=== PATIENT | male | born 1955 | race Caucasian/White ===

== ENCOUNTER 2021-04-20 22:25 | Inpatient (IN) | payer OTHER, SELFPAY ==
--- NOTE | ~2021-04-20 | XR_ITS ---
XR chest 1V portable DATE: 04/20/2021 23:06 INDICATION: Shortness of breath, hypoxia TECHNIQUE: Portable supine AP chest on 04/20/2021 at 2302 hours COMPARISON: 08/01/2017 AP and lateral chest FINDINGS: Heart size appears normal. Mild infiltrate or atelectasis at the lung bases. No pleural eff usion or pneumothorax is evident. Diffuse osteopenia. IMPRESSION: Mild infiltrate or atelectasis at the lung bases Reviewed, dictated and finalized at location A. ENISHMENT SPECIALIST
--- NOTE | ~2021-04-20 | CT_ITS ---
EXAMINATION: CTA chest PE protocol DATE: 04/21/2021 10:00 INDICATION: Chest pain. Shortness of breath. TECHNIQUE: Computed tomography angiography (CTA) of the chest was performed with 100 mL Omnipaque-350 intravenous contrast timed to evaluate the pulmonary arteries. Coronal maximum intensity projection 3D-reconstructions were created by the technologist. Automated exposure control and iterative reconst ruction technique were employed. The dose-length product was 599.29 mGy-cm. COMPARISON: Chest single view 04/20/2021 FINDINGS: There are airspace opacities in the lower lobes with volume loss. There is mucous plugging in the lower lobes. There are groundglass opacities and centrilobular nodules in the lower lobes and dependent upper lobes. No pleural effusion. The heart size is normal. There are coronary artery calci fications. No pericardial effusion. There is mild bilateral hilar lymphadenopathy, likely reactive. T here is no pulmonary embolus. There are gallstones in the gallbladder, which is normal in size. Calci fications in the spleen are consistent with old granulomatous disease. There are old healed right rib fractures. There are bridging endplate osteophytes at multiple levels in the spine, consistent with diffuse idiopathic skeletal hyperostosis (DISH). IMPRESSION: 1. No pulmonary embolus. Sensitivity is moderately decreased by motion artifact. 2. Pneumonia involving the lower lobes and posterior aspects of the upper lobes. 3. Mild bilateral hilar lymphadenopathy, likely reactive. Reviewed, dictated and finalized at location A. ESSOR OF GENETICS IMPRESSION: 1. No pulmonary embolus. Sensitivity is moderately decreased by motion artifact . 2. Pneumonia involving the lower lobes and posterior aspects of the upper lobes . 3. Mild bilateral hilar lymphadenopathy, likely reactive.
--- NOTE | ~2021-04-20 | XR_ITS ---
XR chest 1V portable DATE: 04/23/2021 10:16 INDICATION: Shortness of breath. Pneumonia. TECHNIQUE: Portable upright AP chest on 04/23/1999 22,010 hours COMPARISON: 04/21/2021 CT pulmonary scan 04/20/2021 portable AP chest FINDINGS: There are mild patchy bilateral pulmonary infiltrates, predominating in the lower lobes. No pleural effusion or pneumothorax. Heart size appears borderline. IMPRESSION: Mild patchy bilateral pulmonary infiltrates, primarily in the lower lobes Reviewed, dictated and finalized at location A. T SUPERVISOR
[2021-04-20 22:24] VITALS: BP 118/86; PULSE 84; RESP 26; TEMP 36.3; O2SAT 96
--- NOTE | 2021-04-20 22:37 | ED.SOB ---
HPI - SOB/Dyspnea General Chief Complaint: Shortness of Breath/Dyspnea Stated Complaint: respiratory distress Time Seen by Provider: 04/20/21 22:25 History of Present Illness HPI Narrative: 65-year-old male that is a resident of a local care home and has history of diabetes presents to the emerge department for evaluation of cute onset of hypoxia. Nursing staff went to check on the patient this evening and he had a pulse ox 85% on room air. Patient was placed on 2 L of nasal cannula and had minimal improvement. EMS was called and patient was placed on CPAP for transport. During transport this did help the patient's oxygenation. Upon arrival to the emergency department patient was placed on BiPAP at 12/5. Related Data Home Medications Medication Instructions Recorded Confirmed acetaminophen 1,000 mg PO Q6H PRN 04/21/21 04/21/21 albuterol 90 mcg INHALATION .QID 04/21/21 04/21/21 aspirin 81 mg PO DAILY 04/21/21 04/21/21 atorvastatin 20 mg PO HS 04/21/21 04/21/21 collagenase clostridium histo. 1 applic TOPICAL DAILY 04/21/21 04/21/21 [Santyl] divalproex [Depakote Sprinkles] 125 mg PO BID 04/21/21 04/21/21 duloxetine [Cymbalta] 60 mg PO DAILY 04/21/21 04/21/21 famotidine [Acid Controller] 20 mg PO BID 04/21/21 04/21/21 fenofibrate nanocrystallized 145 mg PO DAILY 04/21/21 04/21/21 [Tricor] guaifenesin [Mucinex] 600 mg PO Q12H PRN 04/21/21 04/21/21 insulin glargine [Lantus U-100 10 unit SUBCUT .HS 04/21/21 04/21/21 Insulin] insulin lispro [Admelog U-100 6 unit SUBCUT TID 04/21/21 04/21/21 Insulin lispro] metoprolol tartrate [Lopressor] 50 mg PO BID 04/21/21 04/21/21 olanzapine 5 mg PO DAILY 04/21/21 04/21/21 Allergies Allergy/AdvReac Type Severity Reaction Status Date / Time lisinopril Allergy Unknown Verified 04/22/12 09:08 No Known Allergies Allergy Verified 08/01/17 02:43 Review of Systems Review of Systems: ROS unobtainable: Yes unobtainable due to mental status PMFSH Social History Social History Smoking status: Never smoker Alcohol intake: never Exam Narrative: APPEARANCE: Well appearing, no pain in distress, well-nourished. HEAD: normocephalic, atraumatic. EYES: PERRLA/EOMI, conjunctivae clear. NECK: Supple. No adenopathy, no masses. RESPIRATORY: Airway patent, respirations nonlabored. Rhonchi heard bilaterally CARDIOVASCULAR: Regular rate and rhythm without murmurs rubs or gallops. ABDOMINAL: Soft, nontender, nondistended, normal bowel sounds MUSCULOSKELETAL: Moves all extremities. Strength/ROM intact, bilateral BKA NEURO: Somnolent but arouses to verbal stimuli , gives brief answers, cranial nerves II through XII intact. Good gait. Good coordination SKIN: Warm, dry. Normal Color PSYCHIATRIC: Normal affect/mood. Course Course Emergency Course: Patient's x-ray showed pulmonary vascular congestion. Patient's troponin was elevated at 0.08. Patient does have an elevated BNP. Patient was started on IV Lasix. Patient's UA is concerning for a urinary tract infection so patient was started on Rocephin. Patient suprapubic catheter was changed in the emergency department. His fistula is well-established and was easily changed with no complications. Case was discussed with the hospitalist and patient was admitted Vital Signs Vital signs: Vital Signs Temperature 97.3 F L 04/20/21 22:24 Pulse Rate 84 04/20/21 22:24 Respiratory Rate 26 H 04/20/21 22:24 Blood Pressure 118/86 04/20/21 22:24 Pulse Oximetry 96 04/20/21 22:24 Temperature 97.3 F L 04/20/21 22:24 Pulse Rate 62 04/21/21 05:43 Respiratory Rate 20 04/21/21 05:43 Blood Pressure 130/54 L 04/21/21 05:43 Pulse Oximetry 96 04/21/21 05:43 MDM - SOB/Dyspnea MDM Narrative Medical decision making narrative: Patient was admitted to the IMU for pulmonary vascular congestion and urinary tract infection. Differential Diagnosis Differential diagnosis: Likely acute exacerbation of chronic obstructive airways di
[2021-04-20 22:40] VITALS: PULSE 66; RESP 27; O2SAT 100
--- NOTE | 2021-04-20 22:44 | ECG_ITS ---
Measurements Intervals [place] Rate: 67 P: 66 CO: 256 QRS: -17 QRSD: 100 T: 63 QT: 435 QTc: 460 Interpretive Statements SINUS RHYTHM WITH FIRST DEGREE AV BLOCK EARLY PRECORDIAL R/S TRANSITION MINIMAL Q WAVES- ANTERIOR LEADS BORDERLINE ST-T WAVE ABNORMALITY- ANTERIOR LEADS BASELINE WANDER- I, II, III, AVF, V6 ABNORMAL ECG Electronically Signed On 04-21-2021 6:17:33 INTERNAL INVESTIGATOR by Benito Browne D.O.
[2021-04-20 22:49] VITALS: PULSE 65
[2021-04-20 22:52] LABS: Basophils Absolute Auto 0.1 K/mm3 (0.0-0.1); Basophils Percent Auto 0.5 % (0.2-1.2); Eosinophils Percent Auto 0.1 % (0-4.4); Hematocrit 36.2 % (42.0-52.0); Immature Granulocyte Absolute 0.06 K/mm3 (0.00-0.031); Immature Granulocyte Percent A 0.4 % (0-0.5); Lymphocytes Absolute Auto 2.55 K/mm3 (0.9-3.2); Lymphocytes Percent Auto 17.5 % (18.3-44.2); Mean Corpuscular HGB Conc 30.4 g/dl (32-36); Mean Corpuscular Hemoglobin 26.3 pg (26-34); Mean Corpuscular Volume 86.4 fl (80-100); Mean Platelet Volume 9.8 fl (7.4-10.4); Monocytes Percent Auto 6.9 % (2.6-8.5); Neutrophils Absolute Auto 10.9 K/mm3 (1.3-6.7); Neutrophils Percent Auto 74.6 % (45.5-73.1); Platelet Count Result 352 k/mm3 (150-375); Red Blood Count 4.19 M/mm3 (4.6-6.20); Red Cell Distribution Width 15.6 % (11.5-14.5); White Blood Count 14.6 K/mm3 (4.5-10.0)
[2021-04-20 22:59] VITALS: O2SAT 100
[2021-04-20 23:03] LABS: Alanine Aminotransferase 12 U/L (4-50); Albumin Level 3.8 g/dL (3.5-5.1); Alkaline Phosphatase 72 U/L (38-126); Anion Gap 7 mmol/L (8-16); Aspartate Amino Transferase 22 U/L (17-59); Bilirubin,Total 0.4 mg/dL (0.2-1.3); Blood Urea Nitrogen 26 mg/dL (9-20); Calcium 9.9 mg/dL (8.4-10.2); Carbon Dioxide 31 mmol/L (22-30); Chloride 103 mmol/L (98-107); Estimated CRCL calculation 74 ml/min; Estimated Glomerular Filt Rate > 60; Glucose 180 mg/dL (65-110); Potassium 3.5 mmol/L (3.4-5.0); Sodium 141 mmol/L (137-145)
[2021-04-20 23:04] LABS: Lactic Acid Reflex 1.2 mmol/L (0.7-2.1); Prothrombin Time 13.2 Seconds (11.1-14.7)
[2021-04-20 23:10] LABS: EDCOVIDSCREEN Negative (Negative)
[2021-04-20 23:24] LABS: NT Pro B Type Natriuretic Pept 887 pg/mL (5-100)
[2021-04-20 23:35] VITALS: BP 134/43; PULSE 64; RESP 26; O2SAT 100
[2021-04-21] VITALS (48 sets, daily range): BP systolic 89–155; BP diastolic 27–105; PULSE 59–115; RESP 13–30; TEMP 36.6; O2SAT 92–100; BMI 25.6; BMI 26.6
[2021-04-21] MEDS: FUROSEMIDE INJ 40 MG/4 ML VIAL IV PUSH ×2 (00:34→09:18)
[2021-04-21 00:47] LABS: Add Urine Microscopic? YES; Appearance Urine Cloudy (Clear); Bacteria Urine 4+ /hpf; Bilirubin Urine Negative (Negative); Blood Urine 1+ (Negative); Calcium Oxalate Crystals Urine Present /hpf; Color Urine Amber (Yellow); Glucose Urine UA Negative (Negative); Ketones Urine Negative (Negative); Leukocyte Esterase Ur 3+ LEU/UL (Negative); Mucus Urine Rare /lpf; Nitrate Urine Negative (Negative); Protein Urine 2+ mg/dL (Negative); RBC Urine >75 /hpf (0-2); Specific Grav Ur 1.024 (1.001-1.035); Squamous Epithelial Cell Urine Rare /hpf (Few); Urobilinogen Urine Negative mg/dL (<2.0); WBC Clumps Urine Present /HPF; WBC Urine >75 /hpf
[2021-04-21 05:50] LABS: Troponin I 0.079 ng/mL (0.000-0.034)
--- NOTE | 2021-04-21 06:35 | PC.NURSE ---
Suprapubic changed by .
[2021-04-21 08:27] LABS: Troponin I 0.086 ng/mL (0.000-0.034)
--- NOTE | 2021-04-21 10:40 | PC.NURSE ---
Pt unable to give sputum sample at this time but notified of need to collect one when possible.
[2021-04-21] MEDS: INSULIN ASPART (*BKC) 100 UNITS/ML 6 UNITS SUB-Q ×2 (11:38→17:00)
[2021-04-21 11:42] LABS: Glucose Point of Care 224 mg/dl (65-105)
[2021-04-21] MEDS: ALBUTEROL SULFATE NEB 2.5 MG/0.5 ML INH INHALATION ×3 (12:52→19:27)
[2021-04-21] MEDS: IPRATROPIUM BR 0.02% INH SOLN 0.5 MG/2.5 ML VIAL INHALATION ×3 (12:52→19:27)
--- NOTE | 2021-04-21 13:27 | PC.NURSE ---
Patient states that he gets his prescriptions filled at [facility] in [place]. Unable to locate Pharmacy on list of Pharmacies in EMR.
--- NOTE | 2021-04-21 13:38 | PM.IMHP ---
H&P: HPI History of Present Illness Date/Time: 04/21/21 13:38 Chief Complaint: Shortness of breath Narrative: 65-year-old male who is a resident of local [facility] presents for acute onset hypoxia with respiratory distress sudden onset. Nursing staff went to check on the patient yesterday evening and was found to have a pulse oximetry of 85% on room air he was placed on 2 L of nasal cannula with with minimal improvement. The EMS was called. EMS note was reviewed as patient not able to tell me exactly what happened. EMS was reports low blood pressure reported however was had 176/53 recorded per EMS. He was noted to have audible gurgling sounds from the patient. Blood pressure per staff was in 60s over 30s and room air SpO2 in 80s. On 2 L oxygen his saturation was 90%. Patient was then placed on CPAP at 15 L and was transferred to [facility] for further evaluation. At [facility] ER he was switched to BiPAP 03/23 and has remained on BiPAP overnight. He looks comfortable on the BiPAP noting no respiratory distress and hence I had to come off of the BiPAP and washed his oxygen saturation which lowered down to 90% and oxygen supplementation via nasal cannula was placed. He as been noted to be coughing during my evaluation today. He however does not know what happened yesterday and not able to tell me the history of his present illness. Review of Systems Review of Systems: - CONSTITUTIONAL: Denies weight loss, fever and chills. - HEENT: Denies changes in vision and hearing - RESPIRATORY: Reports SOB and cough. - CV: Denies palpitations and CP. - GI: Denies abdominal pain, nausea, vomiting and diarrhea. - : Denies dysuria and urinary frequency. - MSK: Denies myalgia and joint pain. - SKIN: Denies rash and pruritus. - NEUROLOGICAL: Denies headache and syncope. - PSYCHIATRIC: Denies recent changes in mood. Denies anxiety and depression. All systems reviewed & are unremarkable except as noted in HPI and below Constitutional: Constitutional: Reports fatigue and Reports weakness Neurologic: Reports weakness Endocrine: Endocrine: Reports fatigue [facility] Social History Social History Smoking status: Never smoker Alcohol intake: never Meds Home Medications and Allergies Home Medications Medication Instructions Recorded Confirmed Type acetaminophen 1,000 mg PO Q6H PRN 04/21/21 04/21/21 History albuterol 90 mcg INHALATION .QID 04/21/21 04/21/21 History aspirin 81 mg PO DAILY 04/21/21 04/21/21 History atorvastatin 20 mg PO HS 04/21/21 04/21/21 History collagenase clostridium histo. 1 applic TOPICAL DAILY 04/21/21 04/21/21 History [Santyl] divalproex [Depakote Sprinkles] 125 mg PO BID 04/21/21 04/21/21 History duloxetine [Cymbalta] 60 mg PO DAILY 04/21/21 04/21/21 History famotidine [Acid Controller] 20 mg PO BID 04/21/21 04/21/21 History fenofibrate nanocrystallized 145 mg PO DAILY 04/21/21 04/21/21 History [Tricor] guaifenesin [Mucinex] 600 mg PO Q12H PRN 04/21/21 04/21/21 History insulin glargine [Lantus U-100 10 unit SUBCUT .HS 04/21/21 04/21/21 History Insulin] insulin lispro [Admelog U-100 6 unit SUBCUT TID 04/21/21 04/21/21 History Insulin lispro] metoprolol tartrate [Lopressor] 50 mg PO BID 04/21/21 04/21/21 History olanzapine 5 mg PO DAILY 04/21/21 04/21/21 History Allergies Allergy/AdvReac Type Severity Reaction Status Date / Time lisinopril Allergy Unknown Verified 04/22/12 09:08 No Known Allergies Allergy Verified 08/01/17 02:43 Vital Signs Vital Signs - 24 hr 04/20/21 22:24 04/20/21 22:40 04/20/21 22:49 Temperature 97.3 F L Pulse Rate 84 66 65 Respiratory Rate 26 H 27 H Blood Pressure 118/86 Pulse Oximetry 96 100 04/20/21 22:59 04/20/21 23:35 04/21/21 00:32 Temperature Pulse Rate 64 90 Respiratory Rate 26 H 30 H Blood Pressure 134/43 L 152/51 H Pulse Oximetry 100 100 100 04/21/21 01:10 04/21/21 02:25
--- NOTE | 2021-04-21 15:27 | ECG_ITS ---
Measurements Intervals [place] Rate: 61 P: ID: 0 QRS: -24 QRSD: 97 T: 69 QT: 424 QTc: 429 Interpretive Statements SINUS OR ECTOPIC ATRIAL RHYTHM WITH FIRST DEGREE AV BLOCK BORDERLINE ST-T WAVE ABNORMALITY- ANT/HIGH LAT LEADS BASELINE ARTIFACT- I, II, III, AVR, AVL, AVF, V2, V5-V6 ABNORMAL ECG Electronically Signed On 04-21-2021 17:11:12 REED FIXER by Benito Browne D.O.
--- NOTE | 2021-04-21 15:38 | PC.NURSE ---
This nurse completed an EKG at 1533due to suspicion of Afib after speaking to hospitalist Lorie, and MD Jay read ekg in ER at 1536.
[2021-04-21 17:07] LABS: Glucose Point of Care 136 mg/dl (65-105)
--- NOTE | 2021-04-21 18:31 | PC.NURSE ---
Pt received a breakfast, lunch, and dinner tray today. Pt denied breakfast, and pt ate 70% of lunch and dinner trays.
[2021-04-21] MEDS: FAMOTIDINE 20 MG TABLET PO (22:07)
[2021-04-21 22:50] LABS: Glucose Point of Care 151 mg/dl (65-105)
[2021-04-22] VITALS (15 sets, daily range): BP systolic 122–143; BP diastolic 32–56; PULSE 59–80; RESP 16–22; TEMP 36.1–36.6; O2SAT 91–100
[2021-04-22] MEDS: ATORVASTATIN 20 MG TABLET PO ×2 (00:04→20:15)
[2021-04-22] MEDS: DIVALPROEX SODIUM SPRINKLE 125 MG CAP.DR PO ×3 (00:04→20:15)
[2021-04-22] MEDS: ALBUTEROL SULFATE NEB 2.5 MG/0.5 ML INH INHALATION ×3 (00:49→21:17)
[2021-04-22] MEDS: IPRATROPIUM BR 0.02% INH SOLN 0.5 MG/2.5 ML VIAL INHALATION ×3 (00:49→21:17)
--- NOTE | 2021-04-22 01:59 | ADMGEN ---
This patient, Robby Edwards, was admitted to IMU Room 200-01. Patient/family oriented to hospital policies and general routines including ID bracelet, bed and alarms, visiting hours, pain management, procedures, bathroom and other care routines, personal items, smoking policy, room service/diet, and visiting hours. Information on how to activate the Rapid Response Team has been discussed. Patient/Family are encouraged to report perceived risks to care and to ask questions if they do not understand what they are told or what they should do.
[2021-04-22 04:56] LABS: Basophils Absolute Auto 0.1 K/mm3 (0.0-0.1); Basophils Percent Auto 0.7 % (0.2-1.2); Eosinophils Absolute Auto 0.1 K/mm3 (0-0.3); Hematocrit 30.5 % (42.0-52.0); Hemoglobin 9.3 g/dL (14.0-18.0); Immature Granulocyte Absolute 0.03 K/mm3 (0.00-0.031); Immature Granulocyte Percent A 0.3 % (0-0.5); Immature Platelet Fraction Pct 5.5 % (0.9-11.2); Lymphocytes Absolute Auto 2.79 K/mm3 (0.9-3.2); Lymphocytes Percent Auto 32.1 % (18.3-44.2); Mean Corpuscular HGB Conc 30.5 g/dl (32-36); Mean Corpuscular Hemoglobin 26.6 pg (26-34); Mean Corpuscular Volume 87.4 fl (80-100); Monocytes Absolute Auto 0.8 K/mm3 (0.1-0.6); Monocytes Percent Auto 9.2 % (2.6-8.5); Neutrophils Absolute Auto 4.9 K/mm3 (1.3-6.7); Neutrophils Percent Auto 56.7 % (45.5-73.1); Platelet Count Result 262 k/mm3 (150-375); Red Blood Count 3.49 M/mm3 (4.6-6.20); Red Cell Distribution Width 15.9 % (11.5-14.5); White Blood Count 8.7 K/mm3 (4.5-10.0)
[2021-04-22 05:10] LABS: Alanine Aminotransferase 10 U/L (4-50); Albumin Level 3.3 g/dL (3.5-5.1); Alkaline Phosphatase 62 U/L (38-126); Anion Gap 7 mmol/L (8-16); Aspartate Amino Transferase 26 U/L (17-59); Bilirubin,Total 0.5 mg/dL (0.2-1.3); Blood Urea Nitrogen 37 mg/dL (9-20); Calcium 9.5 mg/dL (8.4-10.2); Carbon Dioxide 32 mmol/L (22-30); Chloride 99 mmol/L (98-107); Estimated CRCL calculation 75 ml/min; Estimated Glomerular Filt Rate > 60; Glucose 181 mg/dL (65-110); Magnesium 1.9 mg/dL (1.6-2.3); Potassium 3.4 mmol/L (3.4-5.0); Sodium 138 mmol/L (137-145)
--- NOTE | 2021-04-22 06:43 | PCRCNOTE ---
Nebulizer treatment scheduled for 04:00 on 04/22/21 not administered. RT not available during administration window due to other hospital emergencies.
[2021-04-22] MEDS: INSULIN ASPART (*BKC) 100 UNITS/ML 6 UNITS SUB-Q ×3 (08:13→17:42)
[2021-04-22] MEDS: METOPROLOL TARTRATE 50 MG TAB PO ×2 (08:14→20:16)
[2021-04-22] MEDS: FAMOTIDINE 20 MG TABLET PO ×2 (08:14→20:15)
[2021-04-22] MEDS: ENOXAPARIN 40 MG/0.4 ML SYRINGE SUB-Q (08:14)
[2021-04-22] MEDS: FENOFIBRATE NANOCRYSTALLIZED 145 MG TABLET PO (08:14)
[2021-04-22] MEDS: DULoxetine HCL 60 MG CAPSULE.DR PO (08:15)
[2021-04-22] MEDS: OLANZapine 5 MG TABLET PO (08:15)
[2021-04-22] MEDS: ASPIRIN 81 MG CHEWABLE TABLET PO (08:17)
--- NOTE | 2021-04-22 09:28 | PCOTNOTE ---
Attempted to evaluate, not appropriate for therapy services at this time
--- NOTE | 2021-04-22 09:54 | PCPTNOTE ---
Pt is dependent at baseline in [facility].
[2021-04-22] MEDS: COLLAGENASE OINT 30 GM TUBE 1 APPLIC TOPICAL (11:19)
--- NOTE | 2021-04-22 11:33 | PC.NURSE ---
This patient, Robby Edwards, was transferred to [[id number] ] on 04/22/21 at 1120. Personal belongings sent with patient. Report given to [ CAROLE Sequeira @ 1100]. Appropriate documentation sent with patient.
[2021-04-22 11:42] LABS: Glucose Point of Care 170 mg/dl (65-105)
--- NOTE | 2021-04-22 13:44 | PCRCNOTE ---
Window of time for administration has passed. See next scheduled administration.
--- NOTE | 2021-04-22 14:36 | PM.IMPN ---
Progress Note: A&P Assessment and Plan (1) Pneumonia: Code(s): J18.9 - Pneumonia, unspecified organism Status: Acute (2) Pulmonary vascular congestion: Code(s): R09.89 - Other specified symptoms and signs involving the circulatory and respiratory systems Status: Acute (3) Urinary tract infection: Qualifiers: Hematuria presence: without hematuria Urinary tract infection type: acute cystitis Qualified Code(s): N30.00 - Acute cystitis without hematuria Code(s): N39.0 - Urinary tract infection, site not specified Status: Acute (4) Respiratory distress: Code(s): R06.03 - Acute respiratory distress Status: Acute (5) Acute and chronic respiratory failure with hypoxia: Code(s): J96.21 - Acute and chronic respiratory failure with hypoxia Status: Acute (6) S/P bilateral below knee amputation: Code(s): Z89.512 - Acquired absence of left leg below knee; Z89.511 - Acquired absence of right leg below knee Status: Acute (7) Diabetes mellitus type 2 in nonobese: Code(s): E11.9 - Type 2 diabetes mellitus without complications Status: Acute (8) Hypertension: Code(s): I10 - Essential (primary) hypertension Status: Acute (9) Hyperlipidemia: Code(s): E78.5 - Hyperlipidemia, unspecified Status: Acute Additional Plan # Acute hypoxic respiratory failure needing BiPAP pain beginning now will take him off and put on oxygen supplementation. Chest x-ray with pulmonary vascular congestion received Lasix will get CTA done to rule out PE given acute onset of shortness of breath and respiratory distress. CTA did come back negative for PE but denies shows bilateral and basal pneumonia. # bilateral basal pneumonia COVID rapid is negative ceftriaxone and azithromycin for community-acquired pneumonia will check Legionella/mycoplasma/pneumococcus # UTI with suprapubic catheter in place continue ceftriaxone urine culture # possible congestive heart failure initial chest x-ray with some congestive changes. BNP 887 will check echocardiogram. Does not look overly fluid overloaded her heart and heart failure will hold off any further diuresis particularly with his presentation of hypotension. # elevated troponin serial cardiac enzymes negative likely due to pneumonia/the CHF # hypertension initial blood pressure [facility] however been running okay here will continue to monitor on metoprolol at home which will be continued # hyperlipidemia will continue fenofibrate and atorvastatin as he takes at home # diabetes mellitus type 2 on insulin will resume his home insulin therapy # bilateral BKA status # DVT prophylaxis we will put him on Lovenox # code status full code 04/22/2021 Interval history: Patient is sleeping, patient is clinically stable, he is on room air, his blood pressure is close to normal, will continue present managed and reassess tomorrow possibly discharge Subjective Date/time seen: 04/22/21 14:36 HPI:Narrative: 65-year-old male who is a resident of local [facility] presents for acute onset hypoxia with respiratory distress sudden onset. Nursing staff went to check on the patient yesterday evening and was found to have a pulse oximetry of 85% on room air he was placed on 2 L of nasal cannula with with minimal improvement. The EMS was called. EMS note was reviewed as patient not able to tell me exactly what happened. EMS was reports low blood pressure reported however was had 176/53 recorded per EMS. He was noted to have audible gurgling sounds from the patient. Blood pressure per staff was in 60s over 30s and room air SpO2 in 80s. On 2 L oxygen his saturation was 90%. Patient was then placed on CPAP at 15 L and was transferred to [facility] for further evaluation. At [facility] ER he was switched to BiPAP 03/23 and has remained on BiPAP overnight. He looks comfortable o
[2021-04-22 17:09] LABS: Glucose Point of Care 83 mg/dl (65-105)
[2021-04-22] MEDS: GLUCOSE ORAL GEL 15 GM OF GLUCSE IN 37.5 GM TUBE PO (20:13)
[2021-04-22 20:44] LABS: Glucose Point of Care 62 mg/dl (65-105)
[2021-04-22 21:55] LABS: Glucose Point of Care 80 mg/dl (65-105)
[2021-04-22 21:56] LABS: Glucose Point of Care 61 mg/dl (65-105)
[2021-04-23] VITALS (8 sets, daily range): BP systolic 110; BP diastolic 43; PULSE 67–85; RESP 18–20; TEMP 36.3; O2SAT 95
[2021-04-23] MEDS: ALBUTEROL SULFATE NEB 2.5 MG/0.5 ML INH INHALATION ×3 (00:11→08:29)
[2021-04-23] MEDS: IPRATROPIUM BR 0.02% INH SOLN 0.5 MG/2.5 ML VIAL INHALATION ×3 (00:12→08:30)
[2021-04-23 07:54] LABS: Glucose Point of Care 195 mg/dl (65-105)
[2021-04-23] MEDS: FAMOTIDINE 20 MG TABLET PO (08:37)
[2021-04-23] MEDS: guaiFENesin 12 HR 600 MG TABCR PO (08:38)
[2021-04-23] MEDS: OLANZapine 5 MG TABLET PO (08:38)
[2021-04-23] MEDS: METOPROLOL TARTRATE 50 MG TAB PO (08:38)
[2021-04-23] MEDS: DIVALPROEX SODIUM SPRINKLE 125 MG CAP.DR PO (08:38)
[2021-04-23] MEDS: FENOFIBRATE NANOCRYSTALLIZED 145 MG TABLET PO (08:38)
[2021-04-23] MEDS: DULoxetine HCL 60 MG CAPSULE.DR PO (08:38)
[2021-04-23] MEDS: ASPIRIN 81 MG CHEWABLE TABLET PO (08:39)
[2021-04-23] MEDS: COLLAGENASE OINT 30 GM TUBE 1 APPLIC TOPICAL (08:40)
--- NOTE | 2021-04-23 10:04 | PM.DS ---
DS: Admitting Diagnosis Discharge Date 04/23/2021 Admitting Diagnosis 04/23/2021 DS: Discharge Diagnosis Discharge Diagnosis (1) Pneumonia: Code(s): J18.9 - Pneumonia, unspecified organism Status: Acute (2) Pulmonary vascular congestion: Code(s): R09.89 - Other specified symptoms and signs involving the circulatory and respiratory systems Status: Acute (3) Urinary tract infection: Qualifiers: Hematuria presence: without hematuria Urinary tract infection type: acute cystitis Qualified Code(s): N30.00 - Acute cystitis without hematuria Code(s): N39.0 - Urinary tract infection, site not specified Status: Acute (4) Respiratory distress: Code(s): R06.03 - Acute respiratory distress Status: Acute (5) Acute and chronic respiratory failure with hypoxia: Code(s): J96.21 - Acute and chronic respiratory failure with hypoxia Status: Acute (6) S/P bilateral below knee amputation: Code(s): Z89.512 - Acquired absence of left leg below knee; Z89.511 - Acquired absence of right leg below knee Status: Acute (7) Diabetes mellitus type 2 in nonobese: Code(s): E11.9 - Type 2 diabetes mellitus without complications Status: Acute (8) Hypertension: Code(s): I10 - Essential (primary) hypertension Status: Acute (9) Hyperlipidemia: Code(s): E78.5 - Hyperlipidemia, unspecified Status: Acute DS: Summary Hospital Course Reason for hospitalization: Chief Complaint: Shortness of breath Narrative: 65[facility] with respiratory distress sudden onset. Nursing staff went to check on the patient yesterday evening and was found to have a pulse oximetry of 85% on room air he was placed on 2 L of nasal cannula with with minimal improvement. The EMS was called. EMS note was reviewed as patient not able to tell me exactly what happened. EMS was reports low blood pressure reported however was had 176/53 recorded per EMS. He was noted to have audible gurgling sounds from the patient. Blood pressure per staff was in 60s over 30s and room air SpO2 in 80s. On 2 L oxygen his saturation was 90%. Patient was then placed on CPAP at 15 L and was transferred to [facility] for further evaluation. At [facility] ER he was switched to BiPAP 12/5 and has remained on BiPAP overnight. He looks comfortable on the BiPAP noting no respiratory distress and hence I had to come off of the BiPAP and washed his oxygen saturation which lowered down to 90% and oxygen supplementation via nasal cannula was placed. He as been noted to be coughing during my evaluation today. He however does not know what happened yesterday and not able to tell me the history of his present illness. Hospital Course: # Acute hypoxic respiratory failure needing BiPAP pain beginning now will take him off and put on oxygen supplementation. Chest x-ray with pulmonary vascular congestion received Lasix will get CTA done to rule out PE given acute onset of shortness of breath and respiratory distress. CTA did come back negative for PE but denies shows bilateral and basal pneumonia. # bilateral basal pneumonia COVID rapid is negative ceftriaxone and azithromycin for community-acquired pneumonia will check Legionella/mycoplasma/pneumococcus # UTI with suprapubic catheter in place continue ceftriaxone urine culture # possible congestive heart failure initial chest x-ray with some congestive changes. BNP 887 will check echocardiogram. Does not look overly fluid overloaded her heart and heart failure will hold off any further diuresis particularly with his presentation of hypotension. # elevated troponin serial cardiac enzymes negative likely due to pneumonia/the CHF # hypertension initial blood pressure hypertensive as reported in the [facility] however been running okay here will continue to monito
[2021-04-23] MEDS: ENOXAPARIN 40 MG/0.4 ML SYRINGE SUB-Q (10:15)
[2021-04-23 10:54] LABS: EDCOVIDSCREEN Negative (Negative)
[2021-04-23 12:11] LABS: Glucose Point of Care 207 mg/dl (65-105)
[2021-04-23 14:55] LABS: Mycoplasma IgM Antibody Titer 179 U/mL (<770)
[2021-04-24 16:52] LABS: Pneumococcal Antigen Urine Not Detected (Not Detected)
[2021-04-25 21:10] LABS: Legionella pneumophila Ag Ur Not Detected (Not Detected)
== END 2021-04-23 13:07 | DRG 139 ==
LOC: ANHED 04-21 01:15 → ANHIMU 04-21 06:25 → ANH2MED 04-22 12:17 → ANHIMU 04-28 15:07
PROVIDERS: Internal Medicine; Admitting Provider Internal Medicine; Emergency Provider Emergency Medicine; PCP Internal Medicine; Visit Provider Family Medicine
DX: J18.9 Pneumonia, unspecified organism (principal); Z20.822 Contact with and (suspected) exposure to COVID-19; N30.00 Acute cystitis without hematuria; J96.21 Acute and chronic respiratory failure with hypoxia; I11.0 Hypertensive heart disease with heart failure; I50.9 Heart failure, unspecified; E11.9 Type 2 diabetes mellitus without complications; E78.5 Hyperlipidemia, unspecified; R77.8 Other specified abnormalities of plasma proteins; Z79.4 Long term (current) use of insulin; Z97.8 Presence of other specified devices; Z89.512 Acquired absence of left leg below knee; Z89.511 Acquired absence of right leg below knee
CPT/HCPCS: 36415; 71045; 71275; 80053; 81001; 82948; 83036; 83605; 83735; 83880; 84484; 85025; 85055; 85610; 86738; 87040; 87077; 87086; 87088; 87186; 87426; 87449; 87804; 87899; 93005; 94002; 94003; 94640; 96374; 99285; A9270; C9803; J0456; J0696; J1650; J1815; J1940; Q9967